=== PATIENT | male | born 1975 | race Caucasian/White ===

== ENCOUNTER 2023-10-16 13:28 | Outpatient (CLI) | payer OTHER, SELFPAY ==
[2023-10-16 21:21] LABS: Chlamydia DNA Amplified* NOT DETECTED (No Detected); GC DNA Amplified* NOT DETECTED (No Detected)
== END 2023-10-16 13:29 | disposition home or self-care (01) ==
PROVIDERS: Visit Provider Physician Assistant
DX: Z11.3 Encounter for screening for infections with a predominantly sexual mode of transmission (principal)
CPT/HCPCS: 87491; 87591

== ENCOUNTER 2024-09-27 18:11 | Emergency (ER) | payer OTHER, SELFPAY ==
--- OUTSIDE RECORDS SUMMARY | 2024-09-27 18:14 | XMS_ITS | Clinical Summary ---
Author Organization [facility] Address [address] [place] [address] Care Team Providers Care Profiler Operator Name Role Phone Max Lynch MD Primary Care Provider [phone]- [phone] Allergies Active Allergy Reactions Criticality Noted Date Comments Trazodone Other - Describe In Comment Field 09/20/2011 Sinus congestion Medications sildenafil citrate (VIAGRA) 50 mg tabletIndications :Erectile dysfunction due to diseases classified elsewhere TAKE 1 TABLET 30 MINUTES TO 4 HOURS BEFORE SEXUAL ACTIVITY IF NEEDED FOR ERECTILE DYSFUNCTION. MAXIMUM 50 MG PER 24 HOURS 18 Tablet 9 4 Active lisinopriL (PRINIVIL; ZESTRIL) 5 mg tabletIndications :Essential hypertension Take 1 Tablet (5 mg) by mouth once daily. 90 Tablet 4 4 Active omeprazole 20 mg tabletIndications :Eosinophilic esophagitis Take 1 Tablet (20 mg) by mouth once daily before a meal. 4 Active Active Problems Problem Noted Date Diagnosed Date Colon polyp 05/24/2022 Overview (05/24/2022): Colonoscopy 05/2022 TA, repeat in 7 years Reactive airway disease, mild intermittent, unco mplicated 01/08/2021 Eosinophilic esophagitis 09/06/2020 Overview (09/06/2022): EGD 09/2020 EoE likely due to reflux As of 09/06/2022 Nexium and Protonix are not covered by insurance. Essential hypertension 07/10/2018 Situational mixed anxiety and depressive disorde r 08/23/2011 Insomnia, unspecified 08/23/2011 Nephrolithiasis 08/07/2011 Encounters Date Type Department Care Team Description 07/15/2024 9:20 AM BROADBAND ENGINEER Orders Only [facility] [address] [place] [phone] Lab, Appv Lab 07/15/2024 Travel from Last 3 Months Immunizations Name Administration Dates Next Due Influenza, IIV3 (Age >=3 years) 07/19/2014 Influenza, IIV4 07/21/2019,04/08/2018 Influenza, Whole Virus 05/22/2015 Tdap 04/05/2022,08/07/2011 Family History Medical History Relation Name Comments Heart Disease Father coronary stent s placed; No [place] Parkinsonism Father Good Health Mother Relation Name Status Comments Father Mother Social History Tobacco Use Types Packs/Day Years Used Date Smoking Tobacco: Never Smokeless Tobacco: Never Tobacco Cessation:Counseling Given: Yes Alcohol Use Standard Drinks/Week Comments Not Currently 0 (1 standard drink = 0.6 oz pur e alcohol) PHQ-2 Answer Date Recorded PHQ-2 TOTAL SCORE 0 11/04/2023 Social Connections Answer Date Recorded Do you often feel lonely or isolated from those around you? 0 11/04/2023 Financial Resource Strain Answer Date R ecorded Difficulty of Paying Living Expenses 3 11/04/2023 Difficulty of Paying Living Expenses Not on file 11/04/2023 Food Insecurity Answer Date Recorded Do you worry your food will run out before you are able to buy more? 1 11/04/2023 Transportation Needs Answer Date Record ed Does lack of transportation keep you from medica l appointments? 1 11/04/2023 Does lack of transportation keep you from work, meetings or getting things that you need? 1 11/04/2023 Housing Stability Answer Date Recorded What is your housing situation today? 1 11/04/2023 Utilities Answer Date Recorded Do you have trouble paying f or utilities (for example, heat, electricity, water, phone)? 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 Not on file Not on file Not on file Obstetrics History Last Filed Vital Signs Vital Sign Reading Time Taken Comments Blood Pressure 120/82 11/04/2023 2:53 PM CDT Pulse 76 11/04/2023 1:32 PM CDT Temperature 36.3 C (97.4 F) 01/08/2021 9:55 AM CDT Respiratory Rate 12 03/26/2017 9:21 AM CDT Oxygen Saturation 99% 11/04/2023 1:32 PM CDT Inhaled Oxygen Concentration - - Weight 110 kg (242 lb 8 oz) 11/04/2023 1:32 PM C DT Height 191.5 cm (6' 3.39) 11/04/2023 1:32 PM CD T Body Mass Index 29.99 11/04/2023 1:32 PM CDT Plan of Treatment Health Maintenance Due Date Last Done Comments COVID-19 vaccine series ( season) 2024 Influenza for age 9-49 04/04/2024 9, 04/08/2018, 05/22/2015, Additional history exists BMI (ht and wt on same day) for age 18+ 11/03/2024 11/04/2023, 04/05/2022, 01/08/2021, Additional history exists Depression screening for age 12+ 11/04/2024 11/05/2023, 11/04/2023, 04/05/2022, Additional history exists Lipids for age 45-75 04/05/2027 04/05/2022, 01/08/2021, 04/08/2018, Additional history exists Tetanus booster 04/05/2032 04/05/2022, 08/07/2011 Colonoscopy through age 75 05/21/203205/21, 05/21/2022, 05/21/2022 Hepatitis C screening for age 18-79 Completed 04/08/2018 Tdap Completed 04/05/2022, 08/07/2011 HIV for age 15-65 Completed 07/15/2024, , 07/21/2019, Additional history exists Pneumococcal series for age 6-49 Aged Out No longer eligible based on patient's age to complete this topic Procedures Procedure Name Priority Date/Time Associated Diagnosis Comments TREPONEMA PALLIDUM Routine 07/15/2024 9: 33 AM BROADBAND ENGINEER STD exposure GC CHLAMYDIA TRACH PROBE Routine 07/15/2024 9:33 AM BROADBAND ENGINEER STD exposure ANTI HIV 1/2 Routine 07/15/2024 9:23 AM BROADBAND ENGINEER STD exposure CREATININE Routine 07/15/2024 9:23 AM BROADBAND ENGINEER Elevated serum creatinine COLONOSCOPY SCREENING Routine 05/21/2022 8:46 AM CDT Screening for colon cancer LIPID PANEL W REFLEX MEASURED LDL Routine 04/05/2022 8:20 AM CDT Lipid screening ANTI HCV Routine 04/08/2018 5:27 PM CDT Screen for STD (sexually transmitted disease) from Last 3 Months or Most Recently Relevant to Health Maintenance Results * TREPONEMA PALLIDUM (07/15/2024 9:33 AM BROADBAND ENGINEER) TREPONEMA PALLIDUM Non-Reacti ve Non-Reacti ve 07/15/2024 1:42 PM BROADBAND ENGINEER [facility] Blood BLOOD SPECIMEN / Unknown [facility] / Unknown 07/15/2024 9:33 AM BROADBAND ENGINEER 07/15/2024 9:33 AM BROADBAND ENGINEER Max Lynch MD SEND OUTS Final Resu lt [facility] [address] [place] [address], * GC & CHLAMYDIA DNA PCR [[id number]] (07/15/2024 9:33 AM BROADBAND ENGINEER) CHLAMYDIA PROBE Negative 6:19 PM BROADBAND ENGINEER [facility] N GONORRHOEAE PROBE Negative 07/15/2024 6:19 PM BROADBAND ENGINEER [facility] Other URINE SPECIMEN / Unknown Non-Blood / Unknown 07/15/2024 9:33 AM BROADBAND ENGINEER 07/15/2024 9:33 AM BROADBAND ENGINEER Max Lynch MD MICROBIOLOGY Final Resu lt [facility] [address] [place] [address], [place] * CREATININE (07/15/2024 9:23 AM BROADBAND ENGINEER) CREATININE 0.99 0.60 - 1.29 mg/dL [facility] EGFR 95 > OR = 60 mL/min/1.73 m2 [facility] Blood BLOOD SPECIMEN / Unknown 07/15/2024 9:23 AM BROADBAND ENGINEER 07/15/2024 9:24 AM BROADBAND ENGINEER Max Lynch MD CHEMISTRY Final Resu lt [facility] [address] [place] [address], [facility] [address] [place] [address] * ANTI HIV 1/2 (07/15/2024 9:23 AM BROADBAND ENGINEER) HIV AG/AB, 4TH GEN NON-REACT KARLA NON-REACT KARLA [facility] Comment: HIV-1 antigen and HIV-1/HIV-2 antibodies were not detected. There is no laboratory evidence of HIV infection. PLEASE NOTE: This information has been disclosed to you from records whose confidentiality may be protected by state law. If your state requires such protection, then the state law prohibits you from making any further disclosure of the information without the specific written consent of the person to whom it pertains, or as otherwise permitted by law. A general authorization for the release of medical or other information is NOT sufficient for this purpose. For additional information please refer to http://education.AppliLog/faq/FKT241 (This link is being provided for informational/ educational purposes only.) The performance of this assay has not been clinically validated in patients less than 2 years old. Blood BLOOD SPECIMEN / Unknown 07/15/2024 9:23 AM BROADBAND ENGINEER 07/15/2024 9:24 AM BROADBAND ENGINEER us Max Lynch MD SEND OUTS Final Resu lt [facility] [address] [place] [address], [place] [phone] [facility] [address] [place] [address] * COLONOSCOPY (05/21/2022 8:53 AM CDT) 05/21/2022 8:53 AM CDT Narrative Transcriptions Perry Benton MD - 05/21/2022 9:40 AM CDT Patient Name: Tae Shaver Procedure Date: 05/21/2022 Gender: Male Date of : 1975 Admit Type: Outpatient Procedure: Colonoscopy Proceduralist: Perry Benton MD , Daiana Mtz RN(Nurse), Ayde Perry (Nurse) Referring MD: Max Lynch Indications/Pre-Op Diagnosis: Screening for colorectal malignant neoplasm, This is the patient's first colonoscopy Medications: Fentanyl 100 micrograms IV, Midazolam 2 mgIV, The level of sedation administered wasmoderate Procedure Description: The patient had risks, benefits and alternatives explained to andgave informed consent. The patient had a stable cardiopulmonary status and judged an adequate candidate for conscious sedation. The endoscope -[id number] was passed through the anus andadvanced to the cecum, identified by appendiceal orifice and ileocecal valve.The colonoscopy was performed without difficulty. The patient toleratedthe procedure well. The quality of the bowel preparation was good. The ileocecal valve, appendiceal orifice, and rectum were photographed. Complications: No immediate complications. Estimated Blood Loss & Specimen: Estimated blood loss: none. Specimen collected - Yes and sent to Laboratory Findings: The perianal and digital rectal examinations were normal. A 4 mm polyp was found in the ascending colon. The polyp was sessile. The polyp was removed with a cold snare. Resection and retrieval were complete. A 2 mm polyp was found in the distal rectum. The polyp was sessile.The polyp was removed with a cold snare. Resection and retrieval were complete. The exam was otherwise without abnormality. Impressions/Post-Op Diagnosis: - One 4 mm polyp in the ascending colon, removed with a cold snare. Resected and retrieved. - One 2 mm polyp in the distal rectum, removed with a cold snare. Resected and retrieved. - The examination was otherwise normal. Recommendation: - Patient has a contact number available for emergencies. The signsand symptoms of potential delayed complications were discussed with the patient. Return to normal activities tomorrow. Written discharge instructions were provided to the patient. - Resume previous diet. - Continue present medications. - Await pathology results. - Repeat colonoscopy is recommended for surveillance. The colonoscopy date will be determined after pathology results from today's exambecome available for review. Moderate Sedation: A time out was performed before the procedure. Moderate (conscious) sedation was administered by the endoscopy nurse and supervised bythe endoscopist. The following parameters were monitored: oxygensaturation, heart rate, blood pressure, EKG, CO2, respiratory rate, adequacy of pulmonary ventilation and reponse to care. Please refer to the patient's medical record flowsheets and nursing notes for moderate sedation details. Total physician intraservice time was 18 minutes. Perry Benton MD 05/21/2022 9:40:52 AM This report has been signed electronically. Note Initiated On: 05/21/2022 8:53 AM Procedure Code(s): --- Professional --- 89323, Colonoscopy, flexible; with removalof tumor(s), polyp(s), or other lesion(s) bysnare technique Diagnosis Code(s): --- Professional --- Z12.11, Encounter for screening formalignant neoplasm of colon D12.2, Benign neoplasm of ascending colon D12.8, Benign neoplasm of rectum CPT copyright 2020 [employer]. All rights reserved. The codes documented in this report are preliminary and upon manager acute reviewmay be revised to meet current compliance requirements. Scope In: 9:17:00 AM Scope Withdrawal Time 0 hours 11 minutes 44 seconds Scope Out: 9:33:22 AM us Perry Benton MD PROCEDURE ORD Final Res ult * (ABNORMAL) LIPID PANEL W REFLEX MEASURED LDL (04/05/2022 8:20 AM CDT) CHOLESTEROL,TOTAL 246(H) 100 - 199 mg/dL 04/05/2022 2:47 PM CDT [facility] TRIGLYCERIDES 121 <150 mg/dL 04/05/2022 2:47 PM CDT [facility] HDL CHOLESTEROL 51 >40 mg/dL 2:47 PM CDT [facility] NON-HDL CHOLESTEROL 195(H) <145 mg/dl 04/05/2022 2:47 PM CDT [facility] CHOL/HDL RATIO 4.82(H) <4.50 04/05/2022 2:47 PM CDT [facility] LDL CHOLESTEROL 171(H) <=130 mg/dL 04/05/2022 2:47 PM CDT [facility] VLDL CHOLESTEROL 24 <=30 mg/dL 04/05/2022 2:47 PM CDT [facility] PROVIDER ORDERED STATUS RANDOM 04/05/2022 2:47 PM CDT [facility] Blood BLOOD SPECIMEN / Unknown Venipuncture / Unknown 04/05/2022 8:20 AM CDT 04/05/2022 8:22 AM CDT us Max Lynch MD CHEMISTRY Final Resu lt [facility] [address] [place] [address], * ANTI HCV (04/08/2018 5:27 PM CDT) HEPATITIS C ANTIBODY Non-React karla Non-React karla 04/09/2018 1:59 PM CDT [facility] Comment:Antibodies to HCV no t detected; does not exclude the possibility of exposure to HCV. Blood BLOOD SPECIMEN / Unknown Venipuncture / Unknown 04/08/2018 5:27 PM CDT 04/08/2018 5:27 PM CDT us Tin Malik MD SEND OUTS Final Re sult [facility] [address] [place] [address], from Last 3 Months or Most Recently Relevant to Health Maintenance Insurance [facility] [employer] [place]OU [id number] * Guarantor: [facility] [employer] Account Type Relation to Patient Date of Phone Billing Address [employer] [address] [place] [id number] * Guarantor: [employer] MADDIE PXS Account Type Relation to Patient Date of Phone Billing Address [employer] [facility] [address] [address] [place] [address] Care Teams Profiler Operator Relationship Specialty Start Date End Date Max Lynch MD [address] [place] [address] PCP - General Family Practice 08/07/11
[2024-09-27 18:22] VITALS: BP 187/103; PULSE 81; RESP 18; TEMP 37; O2SAT 99; BMI 30.5
[2024-09-27 21:32] VITALS: BP 165/89; PULSE 85; RESP 18; TEMP 37; O2SAT 99
--- OUTSIDE RECORDS SUMMARY | 2024-09-27 21:35 | XMS_ITS | Clinical Summary ---
Author Organization [facility] Address [address] [place] [address] Care Team Providers Care Corporate Communications Manager Name Role Phone Max Lynch MD Primary Care Provider +1- [phone] Allergies Active Allergy Reactions Criticality Noted Date [...] Department Care Team Description 07/15/2024 9:20 AM CUSTOMER ACCOUNT COORDINATOR Orders Only [facility] [address] [place] [address] Lab, Appv Lab 07/15/2024 Travel from Last 3 Months Immunizations Name Administration Dates Next Due Influenza, IIV3 (Age >=3 years) 07/19/2014 Influenza, IIV4 07/21/2019,04/08/2018 Influenza, Whole Virus 05/22/2015 Tdap 04/05/2022,08/07/2011 Family History Medical History Relation Name Comments Heart Disease Father coronary stent s placed; No [place] Parkinsonism Father Good Health Mother Relation Name [...] on file Legal Sex Male 8:10 AM CUSTOMER ACCOUNT COORDINATOR Gender Identity Not on file Sexual Orientation [...] TREPONEMA PALLIDUM Routine 07/15/2024 9: 33 AM CUSTOMER ACCOUNT COORDINATOR STD exposure GC CHLAMYDIA TRACH PROBE Routine 07/15/2024 9:33 AM CUSTOMER ACCOUNT COORDINATOR STD exposure ANTI HIV 1/2 Routine 07/15/2024 9:23 AM CUSTOMER ACCOUNT COORDINATOR STD exposure CREATININE Routine 07/15/2024 9:23 AM CUSTOMER ACCOUNT COORDINATOR Elevated serum creatinine COLONOSCOPY SCREENING Routine 05/21/2022 8:46 AM CDT Screening for colon cancer LIPID PANEL W REFLEX MEASURED LDL Routine 04/05/2022 8:20 AM CDT Lipid screening ANTI HCV Routine 04/08/2018 5:27 PM CDT Screen for STD (sexually transmitted disease) from Last 3 Months or Most Recently Relevant to Health Maintenance Results * TREPONEMA PALLIDUM (07/15/2024 9:33 AM CUSTOMER ACCOUNT COORDINATOR) TREPONEMA PALLIDUM Non-Reacti ve Non-Reacti ve 07/15/2024 1:42 PM CUSTOMER ACCOUNT COORDINATOR [facility] Blood BLOOD SPECIMEN / Unknown [facility] / Unknown 07/15/2024 9:33 AM CUSTOMER ACCOUNT COORDINATOR 07/15/2024 9:33 AM CUSTOMER ACCOUNT COORDINATOR Max Lynch MD SEND OUTS Final Resu lt [facility] [address] [place] [address], * GC & CHLAMYDIA DNA PCR [[id number]] (07/15/2024 9:33 AM CUSTOMER ACCOUNT COORDINATOR) CHLAMYDIA PROBE Negative 6:19 PM CUSTOMER ACCOUNT COORDINATOR [facility] N GONORRHOEAE PROBE Negative 07/15/2024 6:19 PM CUSTOMER ACCOUNT COORDINATOR [facility] Other URINE SPECIMEN / Unknown Non-Blood / Unknown 07/15/2024 9:33 AM CUSTOMER ACCOUNT COORDINATOR 07/15/2024 9:33 AM CUSTOMER ACCOUNT COORDINATOR Max Lynch MD MICROBIOLOGY Final Resu lt [facility] [address] [place] [address], [place] * CREATININE (07/15/2024 9:23 AM CUSTOMER ACCOUNT COORDINATOR) CREATININE 0.99 0.60 - 1.29 mg/dL [email or web address] EGFR 95 > OR = 60 mL/min/1.73 m2 [facility] Blood BLOOD SPECIMEN / Unknown 07/15/2024 9:23 AM CUSTOMER ACCOUNT COORDINATOR 07/15/2024 9:24 AM CUSTOMER ACCOUNT COORDINATOR Max Lynch MD CHEMISTRY Final Resu lt [facility] [address] [place] [address], [facility] [address] [place] [address] * ANTI HIV 1/2 (07/15/2024 9:23 AM CUSTOMER ACCOUNT COORDINATOR) HIV AG/AB, 4TH GEN NON-REACT KARLA NON-REACT KARLA [facility] Comment: HIV-1 antigen and HIV-1/HIV-2 antibodies were [...] purpose. For additional information please refer to http://education.Symtext/faq/IUA397 (This link is being provided for informational/ educational purposes only.) The performance of this assay has not been clinically validated in patients less than 2 years old. Blood BLOOD SPECIMEN / Unknown 07/15/2024 9:23 AM CUSTOMER ACCOUNT COORDINATOR 07/15/2024 9:24 AM CUSTOMER ACCOUNT COORDINATOR us Max Lynch MD SEND OUTS Final Resu lt [facility] [address] [place] [address], [place] [phone] [facility] [address] [place] [address] * COLONOSCOPY (05/21/2022 8:53 AM CDT) 05/21/2022 [...] adequate candidate for conscious sedation. The endoscope -[id number] was passed through the anus andadvanced to [...] 8:53 AM Procedure Code(s): --- Professional --- 49524, Colonoscopy, flexible; with removalof tumor(s), polyp(s), or other lesion(s) bysnare technique Diagnosis Code(s): --- Professional --- Z12.11, Encounter for screening formalignant neoplasm of colon D12.2, Benign neoplasm of ascending colon D12.8, Benign neoplasm of rectum CPT copyright 2020 [employer]. All rights reserved. The codes documented in this report are preliminary and upon hand i blocker reviewmay be revised to meet current compliance requirements. Scope In: 9:17:00 AM Scope Withdrawal Time 0 hours 11 minutes 44 seconds Scope Out: 9:33:22 AM us Perry Benton MD PROCEDURE ORD Final Res ult * (ABNORMAL) LIPID PANEL W REFLEX MEASURED LDL (04/05/2022 8:20 AM CDT) CHOLESTEROL,TOTAL 246(H) 100 - 199 mg/dL 04/05/2022 2:47 PM CD[address] [facility] TRIGLYCERIDES 121 <150 mg/dL 04/05/2022 2:47 PM CDT [facility] HDL CHOLESTEROL 51 >40 mg/dL 2:47 PM CDT [facility] NON-HDL CHOLESTEROL 195(H) <145 mg/dl 04/05/2022 2:47 PM CDT [facility] CHOL/HDL RATIO 4.82(H) <4.50 04/05/2022 2:47 PM CDT [facility] LDL CHOLESTEROL 171(H) <=130 mg/dL 04/05/2022 2:47 PM CDT [facility] VLDL CHOLESTEROL 24 <=30 mg/dL 04/05/2022 2:47 PM CDT [facility] PROVIDER ORDERED STATUS RANDOM 04/05/2022 2:47 PM CDT [facility] Blood BLOOD SPECIMEN / Unknown Venipuncture / Unknown 04/05/2022 8:20 AM CDT 04/05/2022 8:22 AM CDT us Max Lynch MD CHEMISTRY Final Resu lt [facility] [address] [place] [address], * ANTI HCV (04/08/2018 5:27 PM CDT) HEPATITIS C ANTIBODY Non-React karla Non-React karla 04/09/2018 1:59 PM CDT [facility] Comment:Antibodies to HCV no t detected; does not exclude the possibility of exposure to HCV. Blood BLOOD SPECIMEN / Unknown Venipuncture / Unknown 04/08/2018 5:27 PM CDT 04/08/2018 5:27 PM CDT us Tin Malik MD SEND OUTS Final Re sult [facility] [address] [place] [address], from Last 3 Months or Most Recently Relevant to Health Maintenance Insurance [facility] MED[employer] IFB [place] CHOU [phone] * Guarantor: [facility] [employer] Account Type Relation to Patient Date of Phone Billing Address [employer] [address] [place] [address] [address] [address] [place] [address] Care Teams Corporate Communications Manager Relationship Specialty Start Date End Date Max Lynch MD [address] [place] [place] [address] PCP - General Family Practice 08/07/11
[2024-09-27 21:46] LABS: Basophils Absolute Auto 0.03 K/uL (0.00-0.30); Basophils Percent Auto 0.4 % (0.0-3.0); Eosinophils Absolute Auto 0.46 K/uL (0.00-0.50); Eosinophils Percent Auto 5.6 % (0.0-7.0); Hematocrit 47.2 % (37.0-53.0); Hemoglobin* 15.3 gm/dL (13.5-17.5); Immature Granulocytes Abs Auto 0.01 K/uL (0.00-0.30); Immature Granulocytes Pct Auto 0.1 %; Lymphocytes Absolute Auto 2.91 K/uL (0.90-2.90); Lymphocytes Percent Auto 35.3 % (20-44); Mean Corpuscular HGB Conc 32 gm/dL (32-36); Mean Corpuscular Hemoglobin 28 pg (26-34); Mean Corpuscular Volume 86 fL (80-100); Monocytes Percent Auto 7.6 % (0.0-11.0); Platelet Count* 253 K/uL (140-440); RDW Coefficient of Variation % 13.1 % (11.5-15.5); Red Blood Count 5.48 m/uL (4.30-5.90); White Blood Count* 8.24 K/uL (4.50-11.00)
[2024-09-27 21:49] LABS: Slide Review Reflex No
[2024-09-27 22:03] LABS: Chloride* 101 mmol/L (96-114); Potassium* 4.1 mmol/L (3.6-5.1); Sodium* 138 mmol/L (135-149)
[2024-09-27 22:06] LABS: Anion Gap 9 mEq/L (7-15); Blood Urea Nitrogen* 19 mg/dL (5-24); Calcium* 9.5 mg/dL (8.4-10.6); Carbon Dioxide* 28 mmol/L (20-32); Creatinine* 0.9 mg/dL (0.5-1.5); Est. Creatinine Clearance* 121.27; Estimated Glomerular Filt Rate 106 ml/min; Glucose* 95 mg/dL (60-115); Magnesium* 2.4 mg/dL (1.5-2.6)
[2024-09-27 22:19] VITALS: BP 159/79; PULSE 81; RESP 18; TEMP 37; O2SAT 99
--- NOTE | 2024-09-27 22:30 | ED.GENADULT ---
HPI - General Adult General Date Seen: 09/27/24 Chief complaint: Syncope/Fainted Stated complaint: Syncopal last night; hit head Time Seen by Provider: 09/27/24 21:15 History of Present Illness HPI narrative: Patient is a 49-year-old, generally healthy man here at the recommendation of a neighbor who is a physician. He says he passed out last night, he had gotten up from bed, was feeling a little sick to his stomach was going to go to the bathroom. On the way back he passed out. He hit his head on the wall, denies headache or persistent symptoms since then. He did have 1 other episode similarly in July where he woke up in the middle night again feeling nauseated, went to urinate and then passed out. He did not think a whole lot of it but discussed with his MD neighbor al and was recommended to come in. He denies any tobacco, alcohol or drug use. He has not had any chest pain, palpitations, shortness of breath, cough, fevers, vomiting, diarrhea, black or bloody stools or other complaints. He is active at his job, he does Canal do [employer], he has never had any exertional symptoms, no syncope during activity, no decreased exercise intolerance. Related Data Home Medications ?Medication ?Instructions ?Recorded ?Confirmed lisinopril 5 mg tablet 5 mg PO DAILY 10/16/23 10/16/23 Allergies Allergy/AdvReac Type Severity Reaction Status Date / Time No Known Drug Allergies Allergy Verified 10/16/23 13:11 Review of Systems Status of ROS: Reports: 10 or more systems reviewed and unremarkable except as noted in History and below [facility] Medical History No significant past medical history Surgical History No significant past surgical history Social History Smoking Status: Never smoker Second hand tobacco smoke exposure: No How often do you have a drink containing alcohol: never AUDIT-C Alcohol total score: 0 Non-prescribed substance use: denies use Exam Narrative: Exam Narrative: Vital signs reviewed In general, alert, nontoxic mid age male. Breathing easily. Head: Normocephalic, atraumatic. Eyes: Sclera clear. Pupils equal and reactive. ENT: Mucous membranes moist. Neck: Supple without adenopathy. Heart: Regular rate and rhythm without murmur. Lungs: Clear. No increased work of breathing, crackles or wheezes. Abdomen: Soft, nontender to palpation. Extremities: Well perfused, pulses intact. No significant edema. Neurologic: Alert, conversant. Speech fluent, face symmetric. Moves all extremities equally. Skin: Warm, dry well perfused. Affect: Normal. Const: Vital Signs, click to edit/add: Vital Signs - 24 hr 09/27/24 18:22 09/27/24 21:32 09/27/24 21:32 Temperature 98.6 F 98.6 F Pulse Rate [Pulse Oximeter] 81 85 Respiratory Rate 18 18 Blood Pressure [Ri ght Upper Arm] 187/103 H 165/89 H Pulse Oximetry 99 99 99 Oxygen Delivery Me thod Room Air Room Air 09/27/24 22:19 09/27/24 22:19 Temperature 98.6 F 98.6 F Pulse Rate [Pulse Oximeter] 81 81 Respiratory Rate 18 18 Blood Pressure [Ri ght Upper Arm] 159/79 H 159/79 H Pulse Oximetry 99 Oxygen Delivery Me thod Room Air Course Course ED Course: Noted to be somewhat hypertensive on arrival, remained a little hypertensive, 160/80. He says that he was not also apprised that his blood pressure was high when he got here. Typically it comes down into the normal range at his doctor's office. With regard to his syncope, features of this are mostly suggestive of either micturition or vagal syncope. He does not have a significant prodrome prior to fainting which is the only somewhat atypical feature. I did do an EKG, showed a sinus rhythm, ventricular rate of 70. No acute ST segment changes. QT corrected is 429 milliseconds. Normal UT interval. Reviewed labs including a CBC and metabolic panel as well as troponin, these are all normal. Discussed with him that frequently we do not find anything diagnostic in the ER when it comes to passing out. I would recommend that he follow-up with his primary doctor, recheck on the blood pressure, and decide whether further investigation with a ZIO patch and or echo would be warranted. Return any time for significant worsening or new symptoms. He is comfortable with plan. Vital Signs Vital signs: Initial Vital Signs Temperature 98.6 F 09/27/24 18:22 Temperature Source Temporal Artery Scan 09/27/24 18:22 Pulse Rate 81 09/27/24 18:22 Respiratory Rate 18 09/27/24 18:22 Blood Pressure 187/103 H 09/27/24 18:22 Blood Pressure Mean 131 H 09/27/24 18:22 Pulse Oximetry 99 09/27/24 18:22 Oxygen Delivery Method Room Air 09/27/24 18:22 Vital Signs Temperature 98.6 F 09/27/24 18:22 Pulse Rate 81 09/27/24 18:22 Respiratory Rate 18 09/27/24 18:22 Blood Pressure 187/103 H 09/27/24 18:22 Pulse Oximetry 99 09/27/24 18:22 Oxygen Delivery Method Room Air 09/27/24 18:22 Temperature 98.6 F 09/27/24 22:19 Pulse Rate 81 09/27/24 22:19 Respiratory Rate 18 09/27/24 22:19 Blood Pressure 159/79 H 09/27/24 22:19 Pulse Oximetry 99 09/27/24 22:19 Oxygen Delivery Method Room Air 09/27/24 22:19 Medical Decision Making Lab Data Labs: Lab Results 09/27/24 09/27/24 Range/Units 21:28 21:37 WBC 8.24 (4.50-11.00) K/uL RBC 5.48 (4.30-5.90) m/uL Hgb 15.3 (13.5-17.5) gm/dL Hct 47.2 (37.0-53.0) % MCV 86 (80-100) fL MCH 28 (26-34) pg MCHC 32 (32-36) gm/dL RDW Coeff of Sheryl 13.1 (11.5-15.5) % Plt Count 253 (140-440) K/uL Neut % (Auto) 51.0 (42.0-72.0) % Lymph % (Auto) 35.3 (20-44) % [place] % (Auto) 7.6 (0.0-11.0) % Eos % (Auto) 5.6 (0.0-7.0) % Baso % (Auto) 0.4 (0.0-3.0) % Neut # (Auto) 4.20 (1.7-7.0) K/uL Lymph # (Auto) 2.91 H (0.90-2.90) K/uL [place] # (Auto) 0.60 (0.00-0.90) K/UL Eos # (Auto) 0.46 (0.00-0.50) K/uL Baso # (Auto) 0.03 (0.00-0.30) K/uL Abs Immat Gran (auto) 0.01 (0.00-0.30) K/uL Imm/Tot Granulo (auto) 0.1 % Sodium 138 (135-149) mmol/L Potassium 4.1 (3.6-5.1) mmol/L Chloride 101 (96-114) mmol/L Carbon Dioxide 28 (20-32) mmol/L Anion Gap 9 (7-15) mEq/L BUN 19 (5-24) mg/dL Creatinine 0.9 (0.5-1.5) mg/dL Estimated Creat Clear 121.27 Estimated GFR 106 ml/min Glucose 95 (60-115) mg/dL Calcium 9.5 (8.4-10.6) mg/dL Magnesium 2.4 (1.5-2.6) mg/dL POC Troponin I 0.00 L (0.01-0.04) ng/ml Discharge Plan Discharge Clinical Impression: Syncope Patient Disposition: Home, Self-Care Condition: Stable Instructions: Syncope (DC) Additional Instructions: Your workup here tonight is normal. Blood counts, electrolytes, kidney function and EKG are all reassuring. Cause peer syncope is not entirely clear although I suspect this may be vagal in nature. I would recommend that you make a follow-up appointment with your primary doctor for recheck. Your blood pressure has run on the high side here and this should be followed up with primary care. If you have acute worsening, develops significant symptoms such as chest pain, shortness of breath, fevers, black or bloody stools, or other significant changes, return to the ER at any time. Prescriptions: No Action lisinopril 5 mg tablet 5 mg PO DAILY Follow Up/Referrals: Max Lynch MD [Primary Care Provider] - Stand Alone Forms: [email or web address] Info Instructions
== END 2024-09-27 22:20 | disposition home or self-care (01) ==
PROVIDERS: Emergency Provider Emergency Medicine; PCP Family Medicine
DX: R55 Syncope and collapse (principal)
CPT/HCPCS: 36415; 80048; 83735; 84484; 85025; 93005; 94761; 99284